=== PATIENT | female | born 1995 | race Caucasian/White ===

== ENCOUNTER 2019-01-23 20:06 | Emergency (ER) | payer SELFPAY ==
[~2019-01-23] VITALS: Ht 165.1 cm; Wt 61.0 kg
[2019-01-23] MEDS ORDERED: KEPP250 PO (20:16)
[2019-01-23 21:15] LABS: CLARITY URINE CLOUDY (CLEAR); COLOR URINE YELLOW (YELLOW); KETONES URINE NEGATIVE (NEGATIVE); LEUKOCYTE ESTERASE URINE NEGATIVE (NEGATIVE); NITRITE URINE NEGATIVE (NEGATIVE); OCCULT BLOOD URINE NEGATIVE (NEGATIVE); PROTEIN URINE NEGATIVE (NEGATIVE); SPECIFIC GRAVITY URINE 1.009 (1.005-1.030); UROBILINOGEN URINE 0.2 E.U./dL (0.2-1.0)
[2019-01-23] MEDS ORDERED: ACETAMINOPHEN 650MG/20.3ML UDC PO ONE (21:15)
[2019-01-23] MEDS ORDERED: SODIUM CHLORIDE 0.9% 500 ML IV ONE (21:15)
[2019-01-23 21:30] LABS: BASOPHILS % 0.2 % (0.0-2.0); EOSINOPHILS % 0.6 % (0.0-5.0); HEMATOCRIT. 34.9 % (36.0-48.0); HEMOGLOBIN. 12.1 g/dL (12.0-16.0); LYMPHOCYTES % 31.5 % (20.0-50.0); MEAN CORPUSCULAR HEMOGLOBIN 31.5 pg (28.0-32.0); MEAN PLATELET VOLUME 7.3 fl (7.4-10.4); MONOCYTES % 5.8 % (2.0-8.0); NEUTROPHILS % 61.9 % (40.0-76.0); PLATELET 255 x1000/uL (130-400); RED BLOOD CELL COUNT 3.83 mill/uL (4.2-5.4); RED CELL DISTRIBUTION WIDTH 14.6 % (11.6-14.6)
[2019-01-23 21:34] LABS: CHLORIDE 108 mEq/L (98-107)
[2019-01-23 21:57] LABS: B-HCG QUANTITATIVE 7552 mIU/mL (<3)
[2019-01-24] MEDS ORDERED: CEFTRIAXONE SODIUM 250 MG/VIAL IM ONE (01:45)
[2019-01-24] MEDS ORDERED: AZITHROMYCIN 500 MG TABLET PO ONE (01:45)
[2019-01-24 01:54] VITALS: BP 110/70
== END 2019-01-24 01:59 | disposition home or self-care (01) ==
LOC: ER 20:06
DX: O23.42 Unspecified infection of urinary tract in pregnancy, second trimester (principal); O26.892 Other specified pregnancy related conditions, second trimester; R10.11 Right upper quadrant pain; K82.4 Cholesterolosis of gallbladder; Z3A.18 18 weeks gestation of pregnancy; Z88.8 Allergy status to other drugs, medicaments and biological substances
CPT/HCPCS: 36415; 76705; 76805; 80053; 81003; 81025; 84702; 85025; 86850; 86900; 86901; 96372; 99284; J0696; J7040; Z7610